=== PATIENT | male | born 1970 | race Caucasian/White ===

== ENCOUNTER 2017-12-04 10:33 | Inpatient (IN) | payer OTHER, MEDICAID ==
[2017-12-04 11:12] LABS: ADD MAN DIFF? NO
[2017-12-04 11:14] LABS: ABNORMAL IP MESSAGE 1; HEMATOCRIT 33.8 % (42.0-52.0); HEMOGLOBIN 11.2 g/dl (14.0-18.0); MEAN CORPUSCULAR HEMOGLOBIN 36.4 pg (29.0-33.0); MEAN CORPUSCULAR HGB CONC 33.1 g/dl (32.0-37.0); MEAN CORPUSCULAR VOLUME 109.7 fl (82.0-101.0); MEAN PLATELET VOLUME 10.8 fl (7.4-10.4); PLATELET COUNT 67 10^3/UL (140-415); POSITIVE DIFF @See below; RED BLOOD COUNT 3.08 10^6/ul (4.70-6.10); RED CELL DISTRIBUTION WIDTH 15.1 % (11.5-14.5)
[2017-12-04 11:14] LABS: WHITE BLOOD COUNT 4.1 10^3/ul (4.8-10.8)
[2017-12-04] MEDS: DILTIAZEM 25 MG INJ IV (11:16)
[2017-12-04] MEDS: morphine 4 MG/ML VIAL IV (11:21)
[2017-12-04] MEDS: ONDANSETRON 4 MG INJ IV (11:21)
[2017-12-04 11:40] LABS: ALANINE AMINOTRANSFERASE 32 IU/L (13-69); ALBUMIN 2.4 g/dl (3.3-4.9); ALBUMIN/GLOBULIN RATIO 0.48; ALKALINE PHOSPHATASE 135 IU/L (42-121); ANION GAP 11 (8-16); ASPARTATE AMINO TRANSFERASE 84 IU/L (15-46); BILIRUBIN,INDIRECT 4.6 mg/dl (0-1.1); BILIRUBIN,TOTAL 5.3 mg/dl (0.2-1.3); BLOOD UREA NITROGEN 6 mg/dl (7-20); CALCIUM 7.3 mg/dl (8.4-10.2); CARBON DIOXIDE 26 mmol/L (21-31); CHLORIDE 107 mmol/L (97-110); CREATINE KINASE 344 IU/L (23-200); CREATININE 0.59 mg/dl (0.61-1.24); GLUCOSE 115 mg/dl (70-220); SODIUM 140 mmol/L (135-144); TOTAL PROTEIN 7.3 g/dl (6.1-8.1)
[2017-12-04 11:52] LABS: B-TYPE NATRIURETIC PEPTIDE 1270 PG/ML (0-125); CK INDEX 0.5; CK-MB 1.55 ng/ml (0.0-2.4); TROPONIN-I < 0.012 ng/ml (0.000-0.120)
[2017-12-04] MEDS: DILTIAZEM-D5W 125MG/125ML DRIP 125 ML IV ×2 (11:56→23:35)
[2017-12-04 12:02] LABS: INR 1.83; PARTIAL THROMBOPLASTIN TIME 37.1 Sec (25.0-35.0); PROTIME 21.6 Sec (11.9-14.9); PT RATIO 1.7
[2017-12-04 12:04] LABS: LYMPHOCYTES % 22.8 % (15.0-51.0); NEUTROPHILS % 55.7 % (39.0-77.0)
[2017-12-04 12:06] LABS: EOSINOPHILS # 0.2 10^3/ul (0.0-0.5); EOSINOPHILS % 3.9 % (0.0-7.0); LYMPHOCYTES # 0.9 10^3/ul (0.8-2.9); MONOCYTE # 0.7 10^3/ul (0.3-0.9); MONOCYTES % 16.4 % (0.0-11.0); NEUTROPHIL # 2.3 10^3/ul (1.6-7.5)
[2017-12-04] MEDS: SOD CHLORIDE 0.9% 100 ML (12:34)
[2017-12-04] MEDS: IOHEXOL 100 ML (12:35)
[2017-12-04] MEDS ORDERED: ONDANSETRON 4 MG INJ IV ×2 (14:30→18:00)
[2017-12-04] MEDS ORDERED: ACETAMINOPHEN 325 MG TAB PO ×2 (14:30→18:00)
[2017-12-04 17:08] LABS: ETHANOL < 10.0 mg/dl
[2017-12-04] MEDS ORDERED: NA PHOSPHATE/BIPHOS 133 ML ENEMA PR (18:00)
[2017-12-04] MEDS ORDERED: DOCUSATE SODIUM 100 MG CAP PO (18:00)
[2017-12-04] MEDS ORDERED: NITROGLYCERIN (SL) 0.4 MG TAB SL (18:00)
[2017-12-04] MEDS ORDERED: NACL 0.9% 3 ML SYG IV (18:00)
[2017-12-04] MEDS ORDERED: MAGNESIUM HYDROXIDE 30ML CUP PO (18:00)
[2017-12-04] MEDS ORDERED: ALBUTEROL/IPRATROPIUM (NEB) 3 ML AMP HHN (18:00)
[2017-12-04] MEDS ORDERED: morphine 2 MG INJ IV (18:00)
[2017-12-04] MEDS ORDERED: LORAZEPAM 2 MG INJ IV (18:00)
[2017-12-04] MEDS ORDERED: hydrALAzine 20 MG INJ IV (18:00)
[2017-12-04 18:42] LABS: INR 1.77; PT RATIO 1.6
[2017-12-04 18:43] LABS: PARTIAL THROMBOPLASTIN TIME 36.7 Sec (25.0-35.0)
[2017-12-04] MEDS: SOD CHLORIDE 0.45% 1,000 ML IV (21:41)
[2017-12-04] MEDS: HEPARIN 5,000 UNIT/0.5 ML VIAL SC (21:42)
[2017-12-05 06:03] LABS: ADD MAN DIFF? NO
[2017-12-05] MEDS: PANTOPRAZOLE 40 MG INJ IV (06:07)
[2017-12-05 06:13] LABS: WHITE BLOOD COUNT 5.8 10^3/ul (4.8-10.8)
[2017-12-05 06:13] LABS: ABNORMAL IP MESSAGE 1; BASOPHILS % 0.7 % (0.0-2.0); EOSINOPHILS # 0.2 10^3/ul (0.0-0.5); EOSINOPHILS % 3.4 % (0.0-7.0); HEMATOCRIT 33.6 % (42.0-52.0); LYMPHOCYTES # 1.3 10^3/ul (0.8-2.9); LYMPHOCYTES % 21.6 % (15.0-51.0); MEAN CORPUSCULAR HEMOGLOBIN 36.1 pg (29.0-33.0); MEAN CORPUSCULAR HGB CONC 32.7 g/dl (32.0-37.0); MEAN CORPUSCULAR VOLUME 110.2 fl (82.0-101.0); MEAN PLATELET VOLUME 10.9 fl (7.4-10.4); MONOCYTE # 0.9 10^3/ul (0.3-0.9); MONOCYTES % 16.2 % (0.0-11.0); NEUTROPHIL # 3.4 10^3/ul (1.6-7.5); NEUTROPHILS % 57.6 % (39.0-77.0); PLATELET COUNT 74 10^3/UL (140-415); POSITIVE DIFF @See below; RED BLOOD COUNT 3.05 10^6/ul (4.70-6.10); RED CELL DISTRIBUTION WIDTH 15.3 % (11.5-14.5)
[2017-12-05 06:48] LABS: CHOLESTEROL 110 mg/dl (100-200)
[2017-12-05 06:48] LABS: CHOL/HDL RATIO 3.7 RATIO; HDL CHOLESTEROL 29 mg/dl (27-67); LDL CHOLESTEROL,CALCULATED 60 mg/dl; TRIGLYCERIDES 105 mg/dl (0-149)
[2017-12-05 06:59] LABS: ANION GAP 13 (8-16); BLOOD UREA NITROGEN 10 mg/dl (7-20); CALCIUM 7.3 mg/dl (8.4-10.2); CARBON DIOXIDE 22 mmol/L (21-31); CHLORIDE 108 mmol/L (97-110); CREATININE 0.59 mg/dl (0.61-1.24); GLUCOSE 91 mg/dl (70-220); MAGNESIUM 1.9 mg/dl (1.7-2.5); PHOSPHORUS 4.4 mg/dl (2.5-4.9); POTASSIUM 4.3 mmol/L (3.5-5.1); SODIUM 139 mmol/L (135-144)
[2017-12-05 07:52] LABS: HEMOGLOBIN A1C 4.3 % (0-5.9)
[2017-12-05] MEDS: SOD CHLORIDE 0.45% 1,000 ML IV ×2 (09:19→20:32)
[2017-12-05] MEDS: HEPARIN 5,000 UNIT/0.5 ML VIAL SC ×2 (09:33→20:31)
[2017-12-05 13:28] LABS: HEMOGLOBIN A1C 4.3 % (0-5.9)
[2017-12-05] MEDS: METOPROLOL 25 MG TAB PO ×2 (14:25→20:32)
[2017-12-05] MEDS: AMIODARONE 150MG/D5W BOLUS 100 ML IV (14:31)
[2017-12-05] MEDS: AMIODARONE 900 MG in DEXTROSE 5% 482 ML IV (15:09)
[2017-12-05 15:10] LABS: HAAIG REFLEX REFLEX FILED
[2017-12-05 15:56] LABS: HEPATITIS B SURFACE ANTIGEN NEGATIVE (NEGATIVE)
[2017-12-05 16:14] LABS: HEPATITIS B CORE ANTIBODY NEGATIVE (NEGATIVE); HEPATITIS C VIRAL ANTIBODY NEGATIVE (NEGATIVE)
[2017-12-05] MEDS: FUROSEMIDE 40 MG INJ IV (19:09)
[2017-12-06 06:29] LABS: ANION GAP 9 (8-16); BLOOD UREA NITROGEN 19 mg/dl (7-20); CALCIUM 7.4 mg/dl (8.4-10.2); CARBON DIOXIDE 25 mmol/L (21-31); CHLORIDE 106 mmol/L (97-110); GLUCOSE 97 mg/dl (70-220); POTASSIUM 4.8 mmol/L (3.5-5.1); SODIUM 135 mmol/L (135-144)
[2017-12-06 06:32] LABS: MAGNESIUM 2.1 mg/dl (1.7-2.5)
[2017-12-06] MEDS: METOPROLOL 25 MG TAB PO ×2 (09:52→22:09)
[2017-12-06] MEDS: HEPARIN 5,000 UNIT/0.5 ML VIAL SC ×2 (09:56→22:21)
[2017-12-06] MEDS: FUROSEMIDE 20 MG INJ IV (13:00)
[2017-12-06 13:32] LABS: TROPONIN-I < 0.012 ng/ml (0.000-0.120)
[2017-12-06 18:56] LABS: TROPONIN-I < 0.012 ng/ml (0.000-0.120)
[2017-12-07 05:46] LABS: ADD MAN DIFF? NO
[2017-12-07 05:51] LABS: WHITE BLOOD COUNT 6.4 10^3/ul (4.8-10.8)
[2017-12-07 05:51] LABS: ABNORMAL IP MESSAGE 1; BASOPHIL # 0.1 10^3/ul (0.0-0.1); BASOPHILS % 0.9 % (0.0-2.0); EOSINOPHILS # 0.3 10^3/ul (0.0-0.5); EOSINOPHILS % 5.3 % (0.0-7.0); HEMATOCRIT 33.5 % (42.0-52.0); HEMOGLOBIN 10.9 g/dl (14.0-18.0); LYMPHOCYTES # 1.5 10^3/ul (0.8-2.9); LYMPHOCYTES % 23.2 % (15.0-51.0); MEAN CORPUSCULAR HEMOGLOBIN 36.2 pg (29.0-33.0); MEAN CORPUSCULAR HGB CONC 32.5 g/dl (32.0-37.0); MEAN CORPUSCULAR VOLUME 111.3 fl (82.0-101.0); MEAN PLATELET VOLUME 11.4 fl (7.4-10.4); MONOCYTE # 1.2 10^3/ul (0.3-0.9); MONOCYTES % 18.8 % (0.0-11.0); NEUTROPHIL # 3.3 10^3/ul (1.6-7.5); NEUTROPHILS % 51.2 % (39.0-77.0); PLATELET COUNT 86 10^3/UL (140-415); POSITIVE DIFF @See below; RED BLOOD COUNT 3.01 10^6/ul (4.70-6.10); RED CELL DISTRIBUTION WIDTH 15.6 % (11.5-14.5)
[2017-12-07 06:12] LABS: ALANINE AMINOTRANSFERASE 26 IU/L (13-69); ALBUMIN 2.4 g/dl (3.3-4.9); ALBUMIN/GLOBULIN RATIO 0.55; ALKALINE PHOSPHATASE 134 IU/L (42-121); ANION GAP 9 (8-16); ASPARTATE AMINO TRANSFERASE 68 IU/L (15-46); BILIRUBIN,INDIRECT 2.6 mg/dl (0-1.1); BILIRUBIN,TOTAL 2.6 mg/dl (0.2-1.3); BLOOD UREA NITROGEN 18 mg/dl (7-20); CALCIUM 7.4 mg/dl (8.4-10.2); CARBON DIOXIDE 25 mmol/L (21-31); CHLORIDE 106 mmol/L (97-110); CREATININE 0.83 mg/dl (0.61-1.24); GLUCOSE 90 mg/dl (70-220); POTASSIUM 4.8 mmol/L (3.5-5.1); SODIUM 135 mmol/L (135-144); TOTAL PROTEIN 6.7 g/dl (6.1-8.1)
[2017-12-07] MEDS: METOPROLOL 25 MG TAB PO ×2 (09:10→21:18)
[2017-12-07] MEDS: HEPARIN 5,000 UNIT/0.5 ML VIAL SC ×2 (09:13→21:25)
[2017-12-07] MEDS: HYDROCODONE/APAP (5/325) TAB PO ×2 (09:16→21:22)
[2017-12-07] MEDS: SPIRONOLACTONE 50 MG TAB PO (16:36)
[2017-12-07] MEDS: FUROSEMIDE 20 MG TAB PO (16:36)
[2017-12-08] MEDS: SPIRONOLACTONE 50 MG TAB PO (09:18)
[2017-12-08] MEDS: METOPROLOL 25 MG TAB PO (09:19)
[2017-12-08] MEDS: FUROSEMIDE 20 MG TAB PO (09:20)
[2017-12-08] MEDS: HEPARIN 5,000 UNIT/0.5 ML VIAL SC (09:24)
== END 2017-12-08 17:30 | disposition home or self-care (01) | DRG 432 ==
LOC: 6WM 14:11 → E/R 10:33
DX: K70.31 Alcoholic cirrhosis of liver with ascites (principal); I50.33 Acute on chronic diastolic (congestive) heart failure; Z68.41 Body mass index [BMI] 40.0-44.9, adult; N17.9 Acute kidney failure, unspecified; K76.6 Portal hypertension; I48.91 Unspecified atrial fibrillation; I11.0 Hypertensive heart disease with heart failure; D69.6 Thrombocytopenia, unspecified; E66.01 Morbid (severe) obesity due to excess calories; I89.0 Lymphedema, not elsewhere classified; Z79.82 Long term (current) use of aspirin
CPT/HCPCS: 36415; 71045; 71275; 74177; 76705; 80048; 80053; 80061; 80307; 82550; 82553; 83036; 83735; 83880; 84100; 84439; 84443; 84484; 85025; 85610; 85730; 86704; 86709; 86803; 87340; 93005; 93306; 93970; 96365; 96366; 96375; 97161; 97166; 97168; 99291-25

== ENCOUNTER 2018-02-10 11:47 | Inpatient (IN) | payer MEDICAID, OTHER ==
[2018-02-10 13:01] LABS: ADD MAN DIFF? NO
[2018-02-10 13:02] LABS: WHITE BLOOD COUNT 5.4 10^3/ul (4.8-10.8)
[2018-02-10 13:02] LABS: HEMOGLOBIN 9.4 g/dl (14.0-18.0); MEAN CORPUSCULAR HEMOGLOBIN 36.2 pg (29.0-33.0); MEAN CORPUSCULAR HGB CONC 33.6 g/dl (32.0-37.0); MEAN CORPUSCULAR VOLUME 107.7 fl (82.0-101.0); RED CELL DISTRIBUTION WIDTH 14.9 % (11.5-14.5)
[2018-02-10 13:03] LABS: ABNORMAL IP MESSAGE 1; BASOPHILS % 0.4 % (0.0-2.0); EOSINOPHILS # 0.2 10^3/ul (0.0-0.5); EOSINOPHILS % 2.8 % (0.0-7.0); LYMPHOCYTES # 1.4 10^3/ul (0.8-2.9); LYMPHOCYTES % 26.3 % (15.0-51.0); MEAN PLATELET VOLUME 9.9 fl (7.4-10.4); MONOCYTE # 0.7 10^3/ul (0.3-0.9); MONOCYTES % 13.1 % (0.0-11.0); NEUTROPHIL # 3.1 10^3/ul (1.6-7.5); NEUTROPHILS % 56.8 % (39.0-77.0); PLATELET COUNT 73 10^3/UL (140-415); POSITIVE DIFF @See below
[2018-02-10] MEDS: FUROSEMIDE 40 MG INJ IV (13:18)
[2018-02-10 13:22] LABS: INR 1.72; PROTIME 20.5 Sec (11.9-14.9); PT RATIO 1.6
[2018-02-10 13:23] LABS: PARTIAL THROMBOPLASTIN TIME 38.8 Sec (23.0-35.0)
[2018-02-10 13:24] LABS: ALANINE AMINOTRANSFERASE 32 IU/L (13-69); ALBUMIN 1.9 g/dl (3.3-4.9); ALBUMIN/GLOBULIN RATIO 0.43; ALKALINE PHOSPHATASE 126 IU/L (42-121); ANION GAP 9 (5-13); ASPARTATE AMINO TRANSFERASE 72 IU/L (15-46); BILIRUBIN,INDIRECT 2.4 mg/dl (0-1.1); BILIRUBIN,TOTAL 2.4 mg/dl (0.2-1.3); BLOOD UREA NITROGEN 18 mg/dl (7-20); CALCIUM 7.3 mg/dl (8.4-10.2); CARBON DIOXIDE 21 mmol/L (21-31); CHLORIDE 110 mmol/L (97-110); Estimated GFR > 60 mL/min (>60); GLUCOSE 175 mg/dl (70-220); LIPASE 201 U/L (23-300); POTASSIUM 4.2 mmol/L (3.5-5.1); SODIUM 140 mmol/L (135-144); TOTAL PROTEIN 6.3 g/dl (6.1-8.1)
[2018-02-10 13:35] LABS: B-TYPE NATRIURETIC PEPTIDE 406 PG/ML (0-125); TROPONIN-I < 0.012 ng/ml (0.000-0.120)
[2018-02-10] MEDS ORDERED: ACETAMINOPHEN 325 MG TAB PO (14:00)
[2018-02-10] MEDS ORDERED: ONDANSETRON 4 MG INJ IV ×2 (14:00→14:30)
[2018-02-10] MEDS ORDERED: ZOLPIDEM 5 MG TAB PO (14:30)
[2018-02-10] MEDS ORDERED: NACL 0.9% 3 ML SYG IV (14:30)
[2018-02-10] MEDS ORDERED: DOCUSATE SODIUM 100 MG CAP PO (14:30)
[2018-02-10 14:49] LABS: ADD UMIC YES; UR ASCORBIC ACID NEGATIVE (NEGATIVE); UR BACTERIA FEW /HPF (NONE SEEN); UR BILIRUBIN (Dip) NEGATIVE (NEGATIVE); UR BLOOD (Dip) 3+ mg/dL (NEGATIVE); UR CLARITY CLEAR (CLEAR); UR COLOR YELLOW (YELLOW); UR GLUCOSE (Dip) NEGATIVE (NEGATIVE); UR KETONES (Dip) NEGATIVE (NEGATIVE); UR LEUKOCYTE ESTERASE (Dip) NEGATIVE Leu/ul (NEGATIVE); UR NITRITE (Dip) NEGATIVE (NEGATIVE); UR RBC 38 /HPF (0-5); UR SPECIFIC GRAVITY (Dip) 1.008 (1.003-1.030); UR TOTAL PROTEIN (Dip) 1+ mg/dl (NEGATIVE); UR UROBILINOGEN (Dip) NEGATIVE (NEGATIVE); UR WBC 4 /HPF (0-5)
[2018-02-10] MEDS: FUROSEMIDE 20 MG TAB PO (18:00)
[2018-02-10] MEDS: SPIRONOLACTONE 50 MG TAB PO (18:00)
[2018-02-11] MEDS: SPIRONOLACTONE 50 MG TAB PO (06:18)
[2018-02-11] MEDS: FUROSEMIDE 20 MG TAB PO (06:19)
[2018-02-11] MEDS: morphine 2 MG INJ IV ×2 (06:21→11:10)
[2018-02-11 06:25] LABS: ADD MAN DIFF? NO
[2018-02-11 06:28] LABS: WHITE BLOOD COUNT 5.9 10^3/ul (4.8-10.8)
[2018-02-11 06:28] LABS: ABNORMAL IP MESSAGE 1; BASOPHILS % 0.5 % (0.0-2.0); EOSINOPHILS # 0.3 10^3/ul (0.0-0.5); EOSINOPHILS % 4.7 % (0.0-7.0); HEMATOCRIT 26.4 % (42.0-52.0); LYMPHOCYTES # 1.8 10^3/ul (0.8-2.9); MEAN CORPUSCULAR HEMOGLOBIN 36.4 pg (29.0-33.0); MEAN CORPUSCULAR HGB CONC 34.1 g/dl (32.0-37.0); MEAN CORPUSCULAR VOLUME 106.9 fl (82.0-101.0); MEAN PLATELET VOLUME 10.2 fl (7.4-10.4); MONOCYTE # 0.8 10^3/ul (0.3-0.9); PLATELET COUNT 72 10^3/UL (140-415); POSITIVE DIFF @See below; RED BLOOD COUNT 2.47 10^6/ul (4.70-6.10); RED CELL DISTRIBUTION WIDTH 14.7 % (11.5-14.5)
[2018-02-11 06:48] LABS: HEMOGLOBIN A1C 4.4 % (0-5.9)
[2018-02-11 06:56] LABS: ANION GAP 9 (5-13); BLOOD UREA NITROGEN 19 mg/dl (7-20); CALCIUM 7.1 mg/dl (8.4-10.2); CARBON DIOXIDE 22 mmol/L (21-31); CHLORIDE 112 mmol/L (97-110); CREATININE 0.92 mg/dl (0.61-1.24); Estimated GFR > 60 mL/min (>60); GLUCOSE 87 mg/dl (70-220); MAGNESIUM 1.7 mg/dl (1.7-2.5); PHOSPHORUS 4.9 mg/dl (2.5-4.9); SODIUM 143 mmol/L (135-144)
== END 2018-02-11 15:20 | disposition home or self-care (01) | DRG 434 ==
LOC: E/R 11:47 → 2NE 13:46
DX: K70.30 Alcoholic cirrhosis of liver without ascites (principal); D63.8 Anemia in other chronic diseases classified elsewhere
CPT/HCPCS: 36415; 71045; 76705; 80048; 80053; 81001; 83036; 83690; 83735; 83880; 84100; 84484; 85025; 85610; 85730; 96374; 99285-25